=== PATIENT | male | born 1950 | race Caucasian/White ===

== ENCOUNTER → 2016-06-23 | Outpatient (CLI) | payer OTHER ==
[~2016-06-23] VITALS: Ht 180.3 cm; Wt 85.3 kg
[~2016-06-23] MED LIST: VITAMIN D35000 UNIT PO
== END | disposition home or self-care (01) ==
LOC: AMB 13:22
PROC: 0DB48ZX Excision of Esophagogastric Junction, Via Natural or Artificial Opening Endoscopic, Diagnostic (ICD-10-PCS; principal; 2016-06-23)
DX: C16.0 Malignant neoplasm of cardia (principal); I34.0 Nonrheumatic mitral (valve) insufficiency; E78.2 Mixed hyperlipidemia
CPT/HCPCS: 88305